=== PATIENT | male | born 1970 | race Caucasian/White ===

== ENCOUNTER 2020-03-11 01:43 | Emergency (ER) | payer BC ==
[~2020-03-11] VITALS: Ht 188 cm; Wt 129.3 kg
[~2020-03-11 01:43] MED LIST: CIPROFLOXACIN500 M1 PO; FLAGYL500 MG PO; IBUPROFEN 800800 MG PO; NOHOMEMEDICATIONS; NORCO 5-325 TA1 EACH PO; PRILOSEC20 MG PO
[2020-03-11 02:01] LABS: URINE BILIRUBIN NEGATIVE (Negative); URINE BLOOD NEGATIVE (Negative); URINE CLARITY CLEAR; URINE COLOR YELLOW; URINE GLUCOSE-RANDOM NEGATIVE (Negative); URINE KETONES NEGATIVE (Negative); URINE LEUKOCYTES-REFLEX NEGATIVE (Negative); URINE NITRITE-REFLEX NEGATIVE (Negative); URINE PROTEIN NEGATIVE (Negative); URINE UROBILINOGEN 0.2 E.U./dl (0.2-1.0)
[2020-03-11 02:05] LABS: ABSOLUTE BASOPHILS 0.1 thou/uL (0.0-0.2); ABSOLUTE EOSINOPHILS 0.2 thou/uL (0.0-0.7); ABSOLUTE LYMPHOCYTES 2.8 thou/uL (0.8-5.3); ABSOLUTE MONOCYTES 0.6 thou/uL (0.0-1.2); ABSOLUTE NEUTROPHILS 6.1 thou/uL (1.6-8.1); BASOPHILS 1.3 %; HEMATOCRIT 46.3 % (42.0-52.0); LYMPHOCYTES 28.7 %; MCH 30.8 pg (26.0-34.0); MCHC 34.6 g/dL (28.0-37.0); MCV 89.2 fL (80.0-100.0); MONOCYTES 5.8 %; MPV 8.7 fl. (7.2-11.1); NUCLEATED RBCS 0 /100WBC; PLATELET COUNT* 207 thou/uL (150-400); POLYS 62.2 %; RBC 5.19 mil/uL (4.50-6.00); RDW-CV 14.3 % (10.5-14.5); WBC 9.8 thou/uL (4.0-11.0)
[2020-03-11 02:41] LABS: CALCIUM 8.5 mg/dL (8.5-10.1); CREATININE 1.3 mg/dL (0.6-1.3)
[2020-03-11] MEDS ORDERED: FLEXERIL PO (04:41)
[2020-03-11] MEDS ORDERED: LORCET 5-325 M1 EACH PO (04:41)
[2020-03-11 04:51] VITALS: BP 144/68
== END 2020-03-11 04:51 | disposition home or self-care (01) ==
LOC: M.ERS 01:43
PROVIDERS: Emergency Medicine
DX: R07.81 Pleurodynia (principal); K21.9 Gastro-esophageal reflux disease without esophagitis; Z88.0 Allergy status to penicillin